=== PATIENT | female | born 1985 | race African-American/Black ===

== ENCOUNTER 2019-05-25 19:12 | Observation (INO) | payer OTHER, MEDICAID ==
[~2019-05-25] VITALS: Ht 157.5 cm; Wt 81.8 kg
[2019-05-25 19:54] LABS: BASOPHILS 0.1 % (0-2); EOSINOPHILS 0.5 % (0-7); HEMATOCRIT 34.6 % (36.0-48.0); HEMOGLOBIN 11.3 g/dL (12-16); IMMATURE GRANULOCYTES 0.3 % (0-5); LYMPHOCYTES 10.8 % (15-50); MCH 30.3 pg (26.0-34.0); MCHC 32.7 g/dL (31.0-37.0); MCV 92.8 fL (80.0-100.0); MEAN PLATELET VOLUME 9.2 fL (7.4-10.4); MONOCYTES 3.9 % (2-11); NEUTROPHILS 84.4 % (40-80); PLATELET COUNT 331 10x3/uL (130-400); RBC 3.73 10x6/uL (4.00-5.40); RDW 13.8 % (11.5-14.5)
[2019-05-25 20:01] LABS: CALC OSMOLALITY 276 mosm/kg (275-300); CALCIUM 8.9 mg/dL (8.5-10.1); CARBON DIOXIDE 21.8 mmol/L (21.0-32.0); CHLORIDE - SERUM 104 mmol/L (98-107); CREATININE - SERUM 0.6 mg/dL (0.6-1.3); GLUCOSE 113 mg/dL (74-106); POTASSIUM - SERUM 3.5 mmol/L (3.5-5.1); SODIUM 138 mmol/L (136-145); UREA NITROGEN 13 mg/dL (7-18); eGFR NON AFRICAN AMERICAN > 90 mL/min (90-120)
[2019-05-25 20:08] LABS: HCG SERUM POSITIVE (NEGATIVE)
[2019-05-25 20:16] LABS: ALBUMIN 3.4 g/dL (3.4-5.0); ALKALINE PHOSPHATASE 85 U/L (46-116); ALT (SGPT) 16 U/L (10-68); BILIRUBIN - TOTAL 0.31 mg/dL (0.2-1.3); LIPASE 90 U/L (73-393); PROTEIN - SERUM 7.4 g/dL (6.4-8.2)
--- NOTE | 2019-05-25 23:25 | NUR ---
URINE SENT TO THE LAB.
[2019-05-25 23:45] VITALS: BP 105/56
[2019-05-25 23:48] LABS: APPEARANCE CLEAR (CLEAR); BILIRUBIN NEGATIVE (NEGATIVE); COLOR YELLOW (YELLOW); GLUCOSE NEGATIVE (NEGATIVE); KETONE MODERATE mg/dL (NEGATIVE); NITRITE NEGATIVE (NEGATIVE); PROTEIN 1+ mg/dL (NEGATIVE); SPECIFIC GRAVITY 1.005 (1.005-1.020); UROBILINOGEN NORMAL (NORMAL)
[2019-05-25 23:50] LABS: BACTERIA FEW /hpf (NEGATIVE); EPITHELIAL CELLS 0-5 /hpf (0-5); RED CELLS - URINE 0-5 /hpf (0-5); WHITE CELLS - URINE 0-5 /hpf (NEGATIVE)
[2019-05-25 23:51] LABS: HCG URINE POSITIVE (NEGATIVE)
[2019-05-26 00:20] VITALS: BP 108/70
--- NOTE | 2019-05-26 01:10 | NUR ---
REPORT GIVEN TO RAYSA TABOR.
--- NOTE | 2019-05-26 01:50 | NUR ---
PHONE REPORT RECEIVED FROM ER NURSE.
--- NOTE | 2019-05-26 02:00 | NUR ---
PT RECEIVED FROM ER VIA WC AND ASSISTED TO BED. ASSESSMENT COMPLETE PER FLOWSHEET. VSS. BBS CLEAR. ABDOMEN SOFT. PT REPORTS HER LAST BM WAS 05/23/19. PT REPORTS THAT SHE IS HAVING ABDOMINAL PAIN IN HER LLQ. PT REPORTS THAT SHE CAME TO THE ER BECAUSE SHE WAS HAVING ABDOMINAL PAIN, VAGINAL BLEEDING AND VOMITTING. PT DENIES ANY C/O N/V OR VAGINAL BLEEDING AT THIS TIME. SL TO HER LEFT AC. NO REDNESS OR TENDERNESS TO SITE. INFORMED PT THAT I WILL CALL DR. CHENG FOR ORDERS. ADMISSION ASSESSMENT COMPLETE. QUESTIONS ANSWERED. PT INSTRUCTED TO NOTIFY NURSE WITH ANY PROBLEMS, NEEDS, OR CONCERNS. VERBALIZED UNDERSTANDING. BED IN LOW POSITION. SR UP X2. CALL LIGHT WITHIN PTS REACH.
[2019-05-26] MEDS ORDERED: PRENAVITE1 TAB (02:12)
[2019-05-26 02:16] VITALS: BP 108/70; Ht 157.5 cm; Wt 81.8 kg
--- NOTE | 2019-05-26 03:02 | NUR ---
CALL PLACED TO DR. CHENG TO INFORM HER THAT PT IS ON UNIT. NEW ORDERS RECEIVED TO START LR AT 125ML/HR, CBC & CMP NOW, MORPHINE 2MG FOR MODERATE PAIN AND MORPHINE 4MG FOR SEVERE PAIN AND FOR PT TO REMAIN NPO.
--- NOTE | 2019-05-26 03:29 | NUR ---
INFORMED PT OF NEW ORDERS RECEIVED FROM DR. CHENG. LR STARTED AT 125ML/HR. SL FLUSHED PRIOR TO STARTING IV FLUIDS. IV SITE PATENT AND WITHOUT REDNESS OR TENDERNESS. INSTRUCTED PT TO NOTIFY NURSE WITH ANY PROBLEMS, NEEDS, OR CONCERNS. VERBALIZED UNDERSTANDING. BED IN LOW POSITION. SR UP X2. CALL LIGHT WITHIN PTS REACH.
--- NOTE | 2019-05-26 04:14 | NUR ---
MORPHINE 4MG GIVEN FOR C/O ABDOMINAL PAIN IN HER LLQ. PT DENIES ANY OTHER COMPLAINTS OR NEEDS. INSTRUCTED PT TO NOTIFY NURSE WITH ANY PROBLEMS, NEEDS, OR CONCERNS. VERBALIZED UNDERSTANDING.
--- NOTE | 2019-05-26 04:45 | NUR ---
PT RESTING INBED. PT REPORTS THAT SHE HAS NO PAIN AT THIS TIME. NO REQUEST MADE. INSTRUCTED PT TO NOTIFY NURSE WITH ANY PROBLEMS, NEEDS, OR CONCERNS. VERBALIZED UNDERSTANDING. BED IN LOW POSITION. SR UP X2. CALL LIGHT WITHIN PTS REACH.
[2019-05-26 05:09] LABS: CALC OSMOLALITY 276 mosm/kg (275-300); CARBON DIOXIDE 24.7 mmol/L (21.0-32.0); CHLORIDE - SERUM 106 mmol/L (98-107); CREATININE - SERUM 0.5 mg/dL (0.6-1.3); GLUCOSE 92 mg/dL (74-106); POTASSIUM - SERUM 3.7 mmol/L (3.5-5.1); SODIUM 140 mmol/L (136-145); eGFR NON AFRICAN AMERICAN > 90 mL/min (90-120)
[2019-05-26 05:10] LABS: UREA NITROGEN 7 mg/dL (7-18)
[2019-05-26 05:14] LABS: ALBUMIN 3.2 g/dL (3.4-5.0); ALKALINE PHOSPHATASE 82 U/L (46-116); ALT (SGPT) 16 U/L (10-68); BASOPHILS 0.2 % (0-2); BILIRUBIN - TOTAL 0.39 mg/dL (0.2-1.3); EOSINOPHILS 0.7 % (0-7); HEMATOCRIT 32.1 % (36.0-48.0); HEMOGLOBIN 10.6 g/dL (12-16); IMMATURE GRANULOCYTES 0.2 % (0-5); MCH 30.3 pg (26.0-34.0); MCV 91.7 fL (80.0-100.0); MEAN PLATELET VOLUME 9.3 fL (7.4-10.4); MONOCYTES 6.9 % (2-11); PLATELET COUNT 320 10x3/uL (130-400); PROTEIN - SERUM 6.6 g/dL (6.4-8.2); RDW 13.9 % (11.5-14.5); WBC 12.1 10x3/uL (4.8-10.8)
--- NOTE | 2019-05-26 06:00 | NUR ---
PT RESTING IN BED WITH EYES CLOSED. NO DISTRESS NOTED. BED IN LOW POSITION. SR UP X2. CALL LIGHT WITHIN PTS REACH.
--- NOTE | 2019-05-26 06:39 | NUR ---
PT ASSISTED UP TO BATHROOM. DENIES ANY COMPLAINTS.
[2019-05-26 07:50] VITALS: BP 130/85
--- NOTE | 2019-05-26 07:50 | NUR ---
IN TO SEE PATIENT. RESTING IN BED. STATES PAIN LEVEL IS DOWN FROM 10 TO 2. IV INFUSING AT 125CC/HR. IV SITE WITHOUT REDNESS, PAIN OR SWELLING. ASSESSMENT COMPLETE. SEE FLOWSHEET. NO COMPLAINTS AT THIS TIME.
--- NOTE | 2019-05-26 08:30 | NUR ---
DR. CHENG HERE TO SEE PT. HISTORY TAKEN AND PELVIC EXAM PERFORMED. DISCUSSED PLAN FOR DISCHARGE AND FOLLOW-UP CARE WITH PATIENT. PATIENT IN AGREEMENT AND STATES UNDERSTANDING.
--- NOTE | 2019-05-26 09:19 | NUR ---
DR CHENG CALLS UNIT- STATES THAT PT HAS AN APPOINTMENT ON WEDNESDAY AT 1330, PT MAY DISCHARGE HOME AND RETURN TO ER TOMORROW FOR BETA.
--- NOTE | 2019-05-26 10:40 | NUR ---
IV C/D'D. CATHETER INTACT. PRESSURE APPLIED. BANDAGE APPLIED OVER INSERTION SITE. PT. UP TO SHOWER.
--- NOTE | 2019-05-26 11:00 | NUR ---
DISCHARGE INSTSRUCTIONS REVIEWED WITH PATIENT. TO RETURN TO ER IF HAVING PAIN UNRELIEVED BY TYLENOL OR IF VAGINAL BLEEDING INCREASES. TO CALL WOMEN[facility]S SERVICES OR DR. CHENG'S OFFICE FOR ANY QUESTIONS OR CONCERNS. TO RETURN TO ER TOMORROW FOR LABS AND TO SEE DR. CHENG IN OFFICE Wednesday05/29/2019 @ 9789. PT DROVE SELF TO ER LAST NIGHT AND IS UNABLE TO OBTAIN A RIDE HOME. HAD MS AT 0415 THIS AM. NOT DROWSY AT THIS TIME. PATIENT STATES SHE FEELS OK TO DRIVE AND LIVES LESS THAN 5 MINUTES FROM THE HOSPITAL. THIS NURSE ACCOMPANIED PATIENT AMBULATORY OFF OF UNIT TO L&D WAITING AREA. PT. STATES "I KNOW WHERE TO GO FROM HERE, THANKS."
== END 2019-05-26 11:45 | disposition home or self-care (01) ==
LOC: D.ER 19:12 → OBSVTIME 05-26 00:46 → D.WS 05-26 00:46
PROVIDERS: Family Medicine; ADMIT Student in an Organized Health Care Education/Training Program; ATTEND Student in an Organized Health Care Education/Training Program
DX: O26.891 Other specified pregnancy related conditions, first trimester (principal); O20.9 Hemorrhage in early pregnancy, unspecified

== ENCOUNTER 2019-05-28 12:22 | Observation (INO) | payer OTHER, MEDICAID ==
[~2019-05-28] VITALS: Ht 157.5 cm; Wt 81.8 kg
--- NOTE | ~2019-05-28 | OP ---
PATIENT NAME: RACHEAL BRYAN MEDICAL RECORD: [id number] :87 LOCATION:[facility] D.1223 ADMISSION DATE:05/28/19 SURGEON: PHILLIP AGUILERA MD DATE OF OPERATION: 05/29/2019 PREOPERATIVE DIAGNOSES: 1. Suspected ectopic . 2. Abdominal pain. POSTOPERATIVE DIAGNOSES: 1. Hemoperitoneum. 2. Ruptured ectopic , which damaged the ovary, left fallopian tube, and left infundibulopelvic ligament. PROCEDURES: Diagnostic laparoscopy and exploratory laparotomy, left salpingo-oophorectomy. SURGEON: Phillip Aguilera MD ANESTHESIA: General endotracheal. INTRAVENOUS FLUIDS: Per anesthesia record. ESTIMATED BLOOD LOSS: Approximately 1000 cc of clot and blood were noted in the abdomen upon entry and approximately another 500 cc of blood was noted intraoperatively. SPECIMENS: Included left fallopian tube and left ovary. OPERATIVE DIAGNOSIS: Ruptured ectopic . FINDINGS: 1. Hemoperitoneum. 2. Multiple areas of clotted blood and severely damaged and displaced left fallopian tube. 3. Damaged, bleeding left ovary. 4. Eroded and bleeding left infundibulopelvic ligament. PROCEDURE IN DETAIL: The patient was taken to the operating room where general anesthesia was achieved without any difficulty. The patient was prepped and draped in normal sterile fashion in the dorsal lithotomy position in the [facility]. SCDs were on and functioning normally. A Danielson catheter was placed. At this point, a 5-mm incision was made infraumbilically and the intraperitoneal space was entered using the 5-mm bladeless trocar without any difficulty under direct visualization of the laparoscope. Following entry into the peritoneal space, the introducer was removed and intraperitoneal placement was confirmed using the laparoscope. Copious blood and clot were noted in the abdomen and pelvis. A 5-mm incision was then made in the left lower quadrant and a second 5-mm port was placed. Attempts were made to examine the left adnexa and to remove clot, but brisk active bleeding was noted upon removal of the clotted material. At this point, a decision was made to proceed with laparotomy. The patient was desufflated and the 2 trocars were removed. A repeat Pfannenstiel skin incision was made, extended downward to the underlying subcutaneous fat to the level of the fascia. The fascia was then excised in the midline and extended bilaterally using the Gottlieb scissors. Superior and inferior OPERATIVE REPORT [id number] IRVIN,DEASEREE aspects of the fascial incision were then grasped with Tara clamps times 2, tented upward, and sharply dissected from the underlying rectus muscle using the Gottlieb scissors and the Bovie cautery. Rectus muscles were then bluntly in the midline, and the peritoneum entered sharply at the superior aspect of the incision. Peritoneal incision was extended downward using the Metzenbaum scissors. At this point, vigorous irrigation was performed to remove copious areas of clot and blood. The uterus was identified and delivered gently to the level of the incision. The left fallopian tube appeared to be detached from most of the mesosalpinx and apparently ruptured and an area of the left ovary was found to be abraded and bleeding and also an area of the left infundibulopelvic ligament was found to be eroded and bleeding. A clamp was placed across the uteroovarian ligament and the proximal fallopian tube. The ovarian vessels were then gently skeletonized and a curved Stefan clamp was placed across the infundibulopelvic ligament below the area where it was bleeding. The left fallopian tube and ovary were then removed, and the tubal stump and utero-ovarian ligament were then oversewn with 2-0 Vicryl with good hemostasis noted. Attention was then turned to the infundibulopelvic ligament where a second curved Stefan clamp was placed to secure the bleeding. A 0 Vicryl free tie was then placed behind the most proximal clamp and the most proximal clamp was gently removed. A 0 Vicryl stitch was then used to suture ligate the infundibulopelvic ligament distal to the free tie. This was removed and good hemostasis was noted. Several 0 Vicryl sutures were then placed in the peritoneal defects between the infundibulopelvic ligament and the utero-ovarian ligament. The pelvis and abdomen were thoroughly irrigated with good hemostasis noted. No evidence of tubal or reattachment was noted anywhere within the pelvis. No obvious products of conception were noted within the large amount of blood and clot. Following thorough irrigation, the counts were correct times 2 for needles, sponges, and instruments. The fascia was repaired with 0 loop PDS times 1, and the skin was repaired with zack. The patient tolerated the procedure well, transferred to postanesthesia recovery stable and without incident. TRANSINT:[id number] Voice Confirmation ID: [id number] DOCUMENT ID: [id number] PHILLIP AGUILERA MD CC: [id number] DICTATION DATE: 06/08/19733 ASSOCIATE ARTISTIC DIRECTOR: 06/08/19 08 DIS IN 05/30/19 [facility] [address] [id number]
[~2019-05-28 12:22] MED LIST: PRENAVITE1 TAB
[2019-05-28 13:24] LABS: BASOPHILS 0.3 % (0-2); HEMATOCRIT 35.1 % (36.0-48.0); HEMOGLOBIN 11.5 g/dL (12-16); IMMATURE GRANULOCYTES 0.3 % (0-5); MCH 30.2 pg (26.0-34.0); MCHC 32.8 g/dL (31.0-37.0); MCV 92.1 fL (80.0-100.0); MEAN PLATELET VOLUME 9.3 fL (7.4-10.4); MONOCYTES 5.3 % (2-11); NEUTROPHILS 73.1 % (40-80); PLATELET COUNT 354 10x3/uL (130-400); RBC 3.81 10x6/uL (4.00-5.40); RDW 13.7 % (11.5-14.5); WBC 11.6 10x3/uL (4.8-10.8)
[2019-05-28 13:27] LABS: CALC OSMOLALITY 271 mosm/kg (275-300); CALCIUM 8.4 mg/dL (8.5-10.1); CARBON DIOXIDE 20.7 mmol/L (21.0-32.0); CHLORIDE - SERUM 106 mmol/L (98-107); CREATININE - SERUM 0.6 mg/dL (0.6-1.3); GLUCOSE 93 mg/dL (74-106); POTASSIUM - SERUM 3.4 mmol/L (3.5-5.1); SODIUM 137 mmol/L (136-145); UREA NITROGEN 8 mg/dL (7-18); eGFR NON AFRICAN AMERICAN > 90 mL/min (90-120)
[2019-05-28 13:38] LABS: ALBUMIN 3.4 g/dL (3.4-5.0); ALKALINE PHOSPHATASE 87 U/L (46-116); ALT (SGPT) 15 U/L (10-68); BILIRUBIN - TOTAL 0.36 mg/dL (0.2-1.3); HCG - QUANTITATIVE (MATERNAL) 33 mIU/mL; PROTEIN - SERUM 7.3 g/dL (6.4-8.2)
--- NOTE | 2019-05-28 13:57 | NUR ---
LAB CALLED L&D AND SAID PT WAS IN LAB TO GET HCG DONE. SAID PT WAS SEEN IN ER TODAY AND DC'D. PT STILL C/O PAIN AND MEDICAL PROFESSIONALS ASKED IF PT SHOULD COME TO L&D. INSTRUCTED PT SHOULD RETURN TO ER FOR REEVALUATION. DR PACK WAS NOTIFIED BY THIS RN REGARDING PLANS WRITTEN BY DR CHENG WHEN PT WAS DC'D HOME WEDNESDAY. CURRENT RESULTS OF HGC QUAT [address] PACK. ALSO REQUESTS RESULTS OF H&H ON WEDNESDAY AND CURRENT H&H RESULTS. DR PACK ALSO INFORMED THAT PATIENT IS CURRENTLY BACK IN ER.
--- NOTE | 2019-05-28 15:50 | NUR ---
URINE SENT TO LAB
[2019-05-28 15:57] LABS: APPEARANCE CLEAR (CLEAR); COLOR YELLOW (YELLOW)
[2019-05-28 15:58] LABS: BILIRUBIN NEGATIVE (NEGATIVE); GLUCOSE NEGATIVE (NEGATIVE); KETONE MODERATE mg/dL (NEGATIVE); NITRITE NEGATIVE (NEGATIVE); PROTEIN NEGATIVE (NEGATIVE); SPECIFIC GRAVITY 1.005 (1.005-1.020); UROBILINOGEN NORMAL (NORMAL)
[2019-05-28 16:00] LABS: BACTERIA FEW /hpf (NEGATIVE); EPITHELIAL CELLS 0-5 /hpf (0-5); RED CELLS - URINE 0-5 /hpf (0-5); WHITE CELLS - URINE 0-5 /hpf (NEGATIVE)
--- NOTE | 2019-05-28 18:35 | NUR ---
WAS TRANSFERRED FROM ER FOR ADMISSION ON L&D. IN ROOM 1275, LAYING ON LEFT SIDE MOANING. SAYS HER PAIN IS 8/10 PRESSURE. STARTED THIS AM AFTER TRYING TO HAVE A BM. SAYS SHE HAS PAIN WHEN PASSING GAS. HAD ONE HARD BALL BM. LAST BM WAS LAST WEDNESDAY. SAYS NO ONE HAS ASKED HER ABOUT BM. BOWEL SOUNDS AUDIBLE X 4 QUADRANTS. SALINE LOCK PRESENT IN LEFT AC. ASKED FOR WATER WHICH WAS GIVEN. CLEAR LIQUID DIET AT BEDSIDE. SIDE RAILS UP X 2, CALL LIGHT IN REACH.
[2019-05-28] MEDS ORDERED: TYLENOL PM1 TAB PO (18:37)
--- NOTE | 2019-05-28 18:45 | NUR ---
NORCO 10 MG GIVEN PO FOR RELIEF OF LEFT LOWER ABDOMINAL PRESSURE 01/21. IV NS 1000 ML PLACED ON ALARIS PUMP AT 125 ML/HR. SIDE RAILS UP X 2, CALL LIGHT IN REACH. DISCUSSED POC TO INCLUDE CLEAR LIQUIDS, IV FLUIDS AND PAIN MANAGMENT. WILL NEED SCDS ON.
--- NOTE | 2019-05-28 19:50 | NUR ---
PAIN REASSESSMENT COMPLETED FROM 1844 DOSE OF NORCO. REPORTS THAT PAIN IS NOW 9/10. STATES "THE PAIN PILL HAS NOT REALLY HELPED AT ALL. I ACTUALLY FEEL LIKE IT MAYBE GETTING WORSE." DESCRIBES PAIN CONSTANT PRESSURE THAT RADIATES TO VAGINAL AREA INTERMITTENTLY. REPORTS THAT SHE HAS HAD "SAME PAIN SINCE WEDNESDAY BUT IT GOT BETTER WEDNESDAY AND WEDNESDAY BUT GOT WORSE TODAY." RLQ AND LLQ ABD TENDER TO PALP. ABD PALPS SOFT, NONDISTENDED WITH ACTIVE BOWEL SOUNDS X4. REPORTS THAT UNTIL TODAY SHE HAD NOT HAD BM AND THAT STOOL TODAY WAS "SMALL HARD ROUND BALL AND I HAD TO PUSH REALLY HARD TO GET IT OUT." REPORTS THAT NORMALLY SHE HAS A BM Q DAY. REPORTS THAT SHE BEGAN HAVING VAGINAL BLEEDING WEDNESDAY THAT WAS "PINKISH TO BROWN" IN COLOR THAT HAS CONTINUED. DENIES PASSING CLOTS EXCEPT FOR FOLLOWING TRANSVAGINAL U/S, "IT WAS ONLY ONE AND MAYBE DIME SIZED." DENIES DIFFICULTY VOIDING OR DYSURIA AND BACK PAIN. NO FLANK PAIN REPORTED OR NOTED WITH ASSESSMENT. POC DISCUSSED WITH PT, VERBALIZES UNDERSTANDING AND DENIES QUESTIONS. BED LOW POSITION WITH SRUP X2. CALL LIGHT AND PHONE WITHIN REACH. WILL CONTINUE TO MONITOR.
[2019-05-28 20:04] VITALS: BP 135/77; BMI 33.0
[2019-05-28 20:24] VITALS: BP 142/84
--- NOTE | 2019-05-28 20:24 | NUR ---
UP TO BR. CURRENT PERIPAD WITH SMALL AMT BROWN AND PINK-TINGED DISCHARGE NOTED. NO CLOTS TO PERIPAD. PT VOIDED LARGE AMT URINE, WITH LARGE BASEBALL SIZED CLOT NOTED IN TOILET. UPON WIPING BRB NOTED. PT REPORTS THAT THIS IS THE FIRST TIME SHE HAS HAD ANY BLEEDING THAT HAS BEEN BRIGHT RED AND PASSED CLOT OF THIS SIZE. DENIES DIZZINESS AND LIGHTHEADEDNESS. V/S REMAIN STABLE. REPORTS THAT PAIN IS STILL UNCHANGED. DENIES NAUSEA. WILL REPORT TO DR. PACK.
--- NOTE | 2019-05-28 21:23 | NUR ---
V/S REMAIN STABLE. ABD REMAINS SOFT AND NON DISTENDED WITH NO REPORTED CHANGE IN TENDERNESS FROM PT. REPORTS THAT PAIN REMAINS 8-9/10, CONSTANT ABD PRESSURE WITH INTERMITTENT RADIATION TO VAGINAL AREA. WILL REPORT TO DR. PACK.
--- NOTE | 2019-05-28 21:26 | NUR ---
DR. PACK PAGED TO GIVE REPORT ON ASSESSMENT FINDINGS AND PT C/O UNCHANGED ABD PAIN.
--- NOTE | 2019-05-28 21:29 | NUR ---
CALL BACK TO UNIT REC'D FROM DR. PACK. ASSESSMENT FINDINGS REPORT INCLUDING PT REPORTS OF CONSTIPATION WITH LAST BM BEING LAST WEDNESDAY AND UNRELIEVED PAIN. ORDERS REC'D TO DRAW STAT CBC AND REPORT TO MD HGB LESS THAN 10, MAY GIVE NEXT DOSE NORCO 30 MINUTES EARLY AND COLACE PO 100 MG BID.
--- NOTE | 2019-05-28 21:43 | NUR ---
COLACE GIVEN PER ORDER. PT UPDATED ON POC CHANGES AND VERBALIZES UNDERSTANDING AND AGREEMENT. TEARFUL AND MOANING AT THIS TIME. C/O INCREASED PAIN TO RLQ OF ABD, 02/21. EXPLAINED PURPOSE OF CBC, VERBALIZES UNDERSTANDING. STATES PAIN IS "SHARP PRESSURE." WARM BLANKET PROVIDED. NO BLOOD NOTED ON PERIPAD, ABD REMAINS SOFT AND NONDISTENDED, REPORTS NO CHANGE IN TENDERNESS FROM INITIALL ASSESSMENT BY THIS RN. BED IN LOW POSITION WITH SRUP X2. CALL LIGHT AND PHONE WITHIN REACH.
[2019-05-28 21:59] VITALS: BP 147/58
[2019-05-28 22:02] LABS: BASOPHILS 0.1 % (0-2); EOSINOPHILS 0.1 % (0-7); HEMATOCRIT 33.4 % (36.0-48.0); HEMOGLOBIN 11.1 g/dL (12-16); IMMATURE GRANULOCYTES 0.4 % (0-5); LYMPHOCYTES 10.2 % (15-50); MCH 30.7 pg (26.0-34.0); MCHC 33.2 g/dL (31.0-37.0); MCV 92.3 fL (80.0-100.0); MONOCYTES 4.7 % (2-11); NEUTROPHILS 84.5 % (40-80); PLATELET COUNT 347 10x3/uL (130-400); RBC 3.62 10x6/uL (4.00-5.40); RDW 13.5 % (11.5-14.5); WBC 13.6 10x3/uL (4.8-10.8)
--- NOTE | 2019-05-28 22:15 | NUR ---
HGB 11.3 FROM STAT DRAW. REMAINS TEARFUL WITH GRIMACE NOTED AND MOANING. PAIN 9/10, SHARP PRESSURE TO BILATERAL LOWER ABD QUADRANTS, "IT'S JUST WORSE ON MY RIGHT SIDE." NORCO 10 GIVEN PER ORDER. ICE WATER PROVIDED. WILL CONTINUE TO MONITOR.
--- NOTE | 2019-05-28 22:35 | NUR ---
PT CALLS VIA CALL LIGHT. REPORTS THAT SHE VOMITTED. APPROXIMATELY 200 MLS CLEAR TO LIGHT YELLOW TINGED EMESIS NOTED ON FLOOR. NORCO THAT HAD BEEN GIVEN AT 2215 NOTED IN EMESIS. DENIES FEELING NAUSEATED PRIOR TO EPISODE AND CURRENTLY. REPORTS THAT SHE HAS HAD INTERMITTENT NAUSEA BUT NO VOMITING AND NO CHANGE IN APPEPITITE. NORCO 10 PULLED AND READMINISTERED. WILL CONTINUE TO MONITOR. BED IN LOW POSITION WITH SRUP X2. FLOOR WET AT THIS TIME AND PT INSTRUCTED TO CALL FOR ASSISTANCE OOB, VERBALIZES UNDERSTANDING.
--- NOTE | 2019-05-28 23:13 | NUR ---
PAIN REASSESSMENT COMPLETED, GRIMACE NOTED. REMAIN TEARFUL. REPORTS THAT PAIN REMAINS 02/21. DR. PACK PAGED TO NOTIFY OF INTERVENTIONS FOR PAIN AND REPORTS OF UNCHANGED PAIN.
--- NOTE | 2019-05-28 23:24 | NUR ---
CALLBACK TO UNIT REC'D FROM DR. PACK. REPORT GIVEN. ORDERS REC'D.
--- NOTE | 2019-05-28 23:31 | NUR ---
JENIFFER IN ULTRASOUND NOTIFIED OF NEED FOR STAT U/S, WILL CALL TECH IN.
--- NOTE | 2019-05-28 23:40 | NUR ---
UPDATED ON CHANGES IN POC, VERBALIZES UNDERSTANDING. PAY PER CLICK STRATEGIST INITIATED AND VERIFIED WITH Zia MERRITT RN. INSTRUCTED ON PAY PER CLICK STRATEGIST USE, VERBALIZES UNDERSTANDING AND DENIES QUESTIONS. ZOFRAN GIVEN PER ORDER AND PT REQUEST. PT REPORTS THAT SHE GET NAUSEATED WITH PAIN MEDS NORMALLY. TRAY AND ICE WATER REMOVED FROM ROOM.
[2019-05-29] VITALS (9 sets, daily range): BP systolic 106–133; BP diastolic 56–84; Ht 157.5 cm; Wt 81.8 kg
--- NOTE | 2019-05-29 00:09 | NUR ---
SECURITY POLICE OFFICER TO ROOM AT THIS TIME TO PEFORM ORDERED U/S PER DR PACK.
--- NOTE | 2019-05-29 00:15 | NUR ---
U/S TECH REMAINS AT BEDSIDE. PAIN 12/21, REPORTS THAT RADIO ANNOUNCER IS STARTING TO HELP RELIEVE PAIN.
--- NOTE | 2019-05-29 01:31 | NUR ---
ROUNDS MADE. OPENS EYES WHEN DOOR OPENS, REPORTS THAT PAIN IS 6-7/10. REPORTS THAT PAIN HAS DECREASED SINCE U/S WAS COMPLETED. DENIES NEEDS AT THIS TIME. SCD'S ON BLE.
--- NOTE | 2019-05-29 02:00 | NUR ---
HARPREET U/S TECH ON UNIT WITH PRELIM U/S REPORT. WILL CALL FINDINGS TO DR. PACK.
--- NOTE | 2019-05-29 02:02 | NUR ---
DR. PACK PAGED WITH IMMEDIATE CALL BACK TO UNIT. U/S PRELIM REPORT REVIEWED. ORDERS REC'D CALL OR CREW IN.
--- NOTE | 2019-05-29 02:04 | NUR ---
JANE GOMEZRN INTENSIVE CARE UNIT NOTIFIED OF NEED FOR OR CREW AND PURPOSE. WILL CALL CREW IN.
[2019-05-29 02:16] LABS: UDS - AMPHET NEGATIVE QUAL (NEGATIVE); UDS - BARB NEGATIVE QUAL (NEGATIVE); UDS - BENZO NEGATIVE QUAL (NEGATIVE); UDS - COCAINE NEGATIVE QUAL (NEGATIVE); UDS - OPIATE POSITIVE QUAL (NEGATIVE); UDS - PCP NEGATIVE QUAL (NEGATIVE); UDS - THC POSITIVE QUAL (NEGATIVE)
--- NOTE | 2019-05-29 02:18 | NUR ---
MEDICAL, ANESTHESIA, AND BLOOD CONSENTS SIGNED AND WITNESSED.
--- NOTE | 2019-05-29 02:27 | NUR ---
DR. PACK AT BEDSIDE DISCUSSING PLAN OF CARE WITH PT.
--- NOTE | 2019-05-29 02:33 | NUR ---
Curry MAST CRNA AT BEDSIDE TO DISCUSS ANESTHESIA WITH PT AND ANSWER QUESTIONS.
--- NOTE | 2019-05-29 02:35 | NUR ---
16 FR FRAGA PLACED USING STERILE TECHNIQUE WITH IMMEDIATE RETURN OF CLEAR LIGHT YELLOW URINE. PERICLIP DONE. SCD'S ON BLE.
--- NOTE | 2019-05-29 02:50 | NUR ---
Curry MAST CRNA NOTIFIED THAT PT CONTINUES TO BF CHILD AT HOME. PER Curry MAST RN. PT WILL NEED TO BE INSTRUCTED TO PUMP AND DUMP D/T MEDS THAT WILL BE REQUIRED DURING PROCEDURE.
--- NOTE | 2019-05-29 02:53 | NUR ---
OFF UNIT WITH OR CREW.
[2019-05-29 04:41] LABS: BASOPHILS 0.2 % (0-2); EOSINOPHILS 0.6 % (0-7); HEMATOCRIT 30.9 % (36.0-48.0); HEMOGLOBIN 10.2 g/dL (12-16); IMMATURE GRANULOCYTES 0.3 % (0-5); LYMPHOCYTES 14.4 % (15-50); MCH 30.5 pg (26.0-34.0); MCV 92.5 fL (80.0-100.0); MONOCYTES 6.9 % (2-11); NEUTROPHILS 77.6 % (40-80); PLATELET COUNT 134 10x3/uL (130-400); RBC 3.34 10x6/uL (4.00-5.40); RDW 13.8 % (11.5-14.5); WBC 11.8 10x3/uL (4.8-10.8)
--- NOTE | 2019-05-29 05:40 | NUR ---
REC'D BACK TO ROOM FROM PACU. VSS. AA&O X3, REPORTS THAT SHE FEELS "A LITTLE SLEEPY." DENIES PAIN AT THIS TIME, STATES "I FEEL SO MUCH BETTER." 700 MLS YELLOW URINE EMPTIED FROM FRAGA. BANDAID NOTED TO UMBILICUS, CLEAN DRY AND INTACT, NO DRAINAGE NOTED. BULKY DRSG TO LOWER TRANSVERSE ABD INCISION NOTED, NO DRAINAGE NOTED. NO VAG BLEEDING NOTED, CHUX REMAIN CLEAN WITH NO BLEEDING NOTED. SCD'S ON, SOCKS PROVIDED. ICE PACK PLACED TO INCISION PER ORDER. SUPERVISOR SPECIAL EFFECTS RESTARTED PER ORDER AND VERIFIED WITH Zia MERRITT RN. INCENTIVE SPIROMETER GIVEN WITH INSTRUCTIONS ON USE, PERFORMED X7 WITH GOOD EFFORT. COUGH AND DEEP BREATHING DONE WITH GOOD EFFORT. CALL LIGHT AND PHONE PLACED WITHIN PT REACH. PT REQUEST RN NOTIFY HER MOTHER THAT SHE HAD RETURNED TO ROOM FROM SURGERY AND WAS DOING WELL. SUPERVISOR SPECIAL EFFECTS BUTTON ALSO PLACED WITHIN REACH. BED IN LOW POSITION WITH SRUP X2.
--- NOTE | 2019-05-29 06:09 | NUR ---
PT MOTHER NOTIFIED THAT PT WAS BACK TO ROOM FROM RECOVERY AND STABLE PER PT REQUEST.
--- NOTE | 2019-05-29 06:18 | NUR ---
EASILY AROUSABLE TO VOICE. VSS. NO VAG BLEEDING NOTED TO CHUX OR PERIPAD. CONTINUES TO DENY PAIN. BED IN LOW POSITION WITH SRUP X2. CALL LIGHT AND PHONE WITHIN REACH. WILL CONTINUE TO MONITOR.
--- NOTE | 2019-05-29 06:40 | NUR ---
NEW BAG NS HUNG TO CONTINUE TO INFUSE AT 125 MLS/HR PER ORDER. EASILY AROUSABLE, DENIES PAIN. CRANBERRY JUICE PROVIDED PER REQUEST. V/S REMAIN STABLE. NO BLEEDING NOTED TO PERIPAD OR CHUX. LOWER TRANSVERSE ABD DRSG REMAINS CLEAN DRY AND INTACT. BED IN LOW POSITION WITH SRUP X2. CALL LIGHT, MERCANTILE REPORTER BUTTON, AND PHONE WITHIN REACH. WILL CONTINUE TO MONITOR.
--- NOTE | 2019-05-29 07:15 | NUR ---
AM ASSESSMENT COMPLETED, PT IS DROWSY BUT EASILY AWAKEN AND ANSWERS QUESTIONS, RATES PAIN AT 5/10, SHE IS ENCOURAGED TO USE HER STREAMING MEDIA SPECIALIST BUTTON AT THIS TIME. SIDE RAILS UP X 2 WITH CALL LIGHT IN REACH.
[2019-05-29 08:15] LABS: BASOPHILS 0.1 % (0-2); EOSINOPHILS 0.3 % (0-7); HEMATOCRIT 30.8 % (36.0-48.0); HEMOGLOBIN 10.1 g/dL (12-16); IMMATURE GRANULOCYTES 0.4 % (0-5); LYMPHOCYTES 12.4 % (15-50); MCH 30.4 pg (26.0-34.0); MCHC 32.8 g/dL (31.0-37.0); MCV 92.8 fL (80.0-100.0); MEAN PLATELET VOLUME 9.2 fL (7.4-10.4); MONOCYTES 5.4 % (2-11); NEUTROPHILS 81.4 % (40-80); RBC 3.32 10x6/uL (4.00-5.40); RDW 13.9 % (11.5-14.5); WBC 11.2 10x3/uL (4.8-10.8)
[2019-05-29 08:27] LABS: PLATELET COUNT 303 10x3/uL (130-400)
--- NOTE | 2019-05-29 08:45 | NUR ---
PT RESTING WITH EYES CLOSED AND RESP EVEN, NO DISTRESS NOTED, PT LEFT UNDISTURBED AT THIS TIME. CALL LIGHT WITH IN REACH WITH SIDE RAILS UP X 2.
--- NOTE | 2019-05-29 10:00 | NUR ---
PT C/O NAUSEA. ZOFRAN 4 MG GIVEN SIVP OVER 2 MINUTES. PT PROVIDED POPSICLE AT PT REQUEST.
--- NOTE | 2019-05-29 10:15 | NUR ---
PT TRANSFERRED TO ROOM 1223. SHE IS AWAKE AND ALERT, DENIES NAUSEA AND ASKING WHEN SHE CAN EAT. UNDERSTANDS THAT DR PACK WOULD BE NOTIFIED FOR NEW ORDERS. IV INFUSING PER ORDER WITHOUT COMPLAINT FROM PT, PAINTER ORDNANCE FOR PAIN CONTROL, PT RATES PAIN AT 4/10 AT THIS TIME. FRAGA CATH TO BEDSIDE DRAIN WITH 200ML CLEAR URINE NOTED. SCD BILAT PER ORDERS. LARGE ICE WATER AND POPSICLE PER REQUEST. PT MOTHER AT BEDSIDE, SIDE RAILS UP X 2 WITH CALL LIGHT IN REACH.
--- NOTE | 2019-05-29 11:45 | NUR ---
PT AWAKEN VERBALLY, VSS SCANNED TO EMAR. RATES PAIN AT 5/10 AND USING HER MANAGER DIABETES NEEDED. ABDOMEN SOFT TO TOUCH WITH BIKINI INCISION COVERED WITH LARGE WHITE BANDAGE THAT IS CLEAN AND DRY. FRAGA WITH 350ML CLEAR URINE, FRAGA CARE PER RN AT THIS TIME ALSO. LARGE ICE WATER PER REQUEST.
--- NOTE | 2019-05-29 13:33 | NUR ---
DR PACK CALLS UNIT FOR AM LAB RESULTS, ORDERS RECEIVED TO ADVANCE PLAN OF CARE, OCTOBER SALINE LOCK IV AND D/C RESIDENT CARE SUPERVISOR, PO PAIN MED ORDERED. CONTINUE TO OBSERVE OVERNIGHT.
--- NOTE | 2019-05-29 14:00 | NUR ---
IV SALINE LOCKED AND HEAD PIECE ASSEMBLER DISCONTINUED. PT GIVEN PAIN MED SCANNED TO EMAR. FRAGA CATH INTACT WITH TOTAL OUTPUT OF 1100ML CLEAR URINE. PT ABLE TO GET HERSELF UP WITHOUT ASSISTANCE AND WALK TO BATHROOM. UNABLE TO VOID AT THIS TIME, MESH BRIEF AND ABHI PAD PROVIDED, GOWN CHANGED. PT BACK TO BED, POSITION SELF FOR COMFORT. SIDE RAILS UP X 2 WITH CALL LIGHT INREACH LIGHTS OUT REQUESTED.
--- NOTE | 2019-05-29 15:30 | NUR ---
PT NOTED TO BE RESTING ON HER RIGHT SIDE. EYES CLOSED AND RESP EVEN, NO SIGNS OF DISTRESS, LEFT UNDISTURBED AT THIS TIME.
--- NOTE | 2019-05-29 17:30 | NUR ---
PT UP TO SHOWER, FAMILY MEMBERS AT BEDSIDE. BED LINENS CHANGED. PT FAMILY REMAINS AT BEDSIDE AND UNDERSTANDS TO USE EMERGENCY CALL LIGHT IF NURSE IS NEEDED.
--- NOTE | 2019-05-29 18:30 | NUR ---
PT CALLS OUT FOR WARM BLANKET, THIS IS RN TAKES REQUESTED ITEM TO ROOM. PT STATES THAT PAIN IS BETTER AFTER SHOWER AND RATES IT AT 4/10. LARGE ICE WATER ALSO PROVIDED AT THIS TIME. PT WAS ABLE TO VOID 400ML PRIOR TO SHOWERING. SIDE RAILS UP X 2, CALL LIGHT IS WITH IN HER REACH.
--- NOTE | 2019-05-29 18:50 | NUR ---
REPORT COMPLETED TO 7P-7A
--- NOTE | 2019-05-29 19:04 | NUR ---
SHIFT REPORT RECEIVED FROM LORENZO IVLCHIS RN
--- NOTE | 2019-05-29 21:10 | NUR ---
PT RESTING IN BED. ASSESSMENT COMPLETE PER FLOWSHEET. VS OBTAINED. BBS CLEAR. ABDOMEN SOFT. INCISIONS TO UMBILICUS AND LEFT OF ABDOMEN C/D/I WITH STITCH. LOW TRANSVERSE ABDOMINAL INCISION C/D/I WITH BHUMIKA. SL TO LEFT AC WITHOUT REDNESS OR TENDERNESS. PT REPORTS THAT SHE HAS NOT PASSED FLATUS. POC DISCUSSED. AMBULATION ENCOURAGED. QUESTIONS ANSWERED. PT INSTRUCTED TO NOTIFY NURSE WITH ANY PROBLEMS, NEEDS, OR CONCERNS. VERBALIZED UNDERSTANDING. BED IN LOW POSITION. SR UP X2. CALL LIGHT WITHIN PTS REACH. WATER PITCHER FILLED. JUICE AND SANDWICH TRAY PER PT REQUEST.
--- NOTE | 2019-05-29 22:46 | NUR ---
PT AMBULATING IN HALLWAYS. TOLERATING WELL.
--- NOTE | 2019-05-29 23:55 | NUR ---
PT RESTING IN ED. VS OBTAINED. PT DENIES ANY COMPLAINTS OR NEEDS AT THIS TIME. INSTRUCTED PT TO NOTIFY NURSE WITH ANY PROBLEMS, NEEDS, OR CONCERNS. VERBALIZED UNDERSTANDING. BED IN LOW POSITION. SR UP X2. CALL LIGHT WITHIN PTS REACH.
--- NOTE | 2019-05-30 02:07 | NUR ---
PT RESTING IN BED WITH EYES CLOSED. NO DISTRESS NOTED. BED IN LOW POSITION. SR UP X2. CALL LIGHT WITHIN PTS REACH.
[2019-05-30 04:30] VITALS: BP 99/51
--- NOTE | 2019-05-30 04:30 | NUR ---
PT RESTING IN BED. VS OBTAINED. PT DENIES ANY COMPLAINTS OR NEEDS. INSTRUCTED PT TO NOTIFY NURSE WITH ANY PROBLEMS, NEEDS, OR CONCERNS. VERBALIZED UNDERSTANDING. BED IN LOW POSITION. SR UP X2. CALL LIGHT WITHIN PTS REACH.
--- NOTE | 2019-05-30 05:05 | NUR ---
PT C/O INCISIONAL PAIN. NORCO 5 AND MOTRIN 600MG X1 TABLET GIVEN. JUICE PROVIDED. INSTRUCTED PT TO NOTIFY NURSE IF PAIN MEDICATION NOT EFFECTIVE OR WITH ANY OTHER PROBLEMS, NEEDS, OR CONCERNS. VERBALIZED UNDERSTANDING. BED IN LOW POSITION. SR UP X2. CALL LIGHT WITHIN PTS REACH.
--- NOTE | 2019-05-30 05:49 | NUR ---
PT RESTING IN BED WITH EYES CLOSED. NO DISTRESS NOTED. BED IN LOW POSITION. SR UP X2. CALL LIGHT WITHIN PTS REACH.
--- NOTE | 2019-05-30 06:24 | NUR ---
PT RESTING IN BED WITH EYES CLOSED. NO DISTRESS NOTED. BED IN LOW POSITION. SR UP X2. CALL LIGHT WITHIN PTS REACH.
--- NOTE | 2019-05-30 07:00 | NUR ---
RECEIVED REPORT FROM Curry DRISCOLL RN. PT RESTING IN BED. NO COMPLAINTS OR NEEDS AT THIS TIME.
[2019-05-30 08:15] VITALS: BP 121/78
--- NOTE | 2019-05-30 08:30 | NUR ---
ASSESSMENT COMPLETED. SEE FLOWSHEET. REGULAR DIET TOLERATED WELL.
--- NOTE | 2019-05-30 09:15 | NUR ---
C/O PAIN AND REQUESTING MEDICATION. MEDICATION GIVEN.
[2019-05-30] MEDS ORDERED: HYDROCODON-ACE1 EA10 PO (11:54)
[2019-05-30] MEDS ORDERED: IBUPROFEN600 MG PO (11:55)
--- NOTE | 2019-05-30 12:05 | NUR ---
REVIEWED DISCHARGE INSTRUCTIONS WITH PATIENT. STATES UNDERSTANDING. PRESCRIPTIONS GIVEN.
--- NOTE | 2019-05-30 12:20 | NUR ---
IV D/C'D. CATHETER INTACT. PRESSURE APPLIED. NO BLEEDING NOTED. BANDAGE APPLIED TO INSERTION SITE.
[2019-05-30 12:25] VITALS: BP 109/72
--- NOTE | 2019-05-30 12:25 | NUR ---
C/O HEADACHE, PRESSURE BEHIND FOREHEAD/EYES. VITAL SIGNS TAKEN. BP WITHIN NORMAL LIMITS. MOTRIN GIVEN.
--- NOTE | 2019-05-30 13:05 | NUR ---
DISCHARGED HOME WITH FAMILY VIA WHEELCHAIR TO PRIVATE VEHICLE ACCOMPANIED BY HOSPITAL VOLUNTEER.
--- NOTE | 2019-05-30 13:05 | NUR ---
DISCHARGE INSTRUCTIONS FAXED TO PATIENT'S EMPLOYER PER PATIENT REQUEST.
== END 2019-05-30 13:07 | disposition home or self-care (01) ==
LOC: D.ER 12:22 → OBSVTIME 17:23 → D.LD 17:23 → D.WS 05-29 10:15
PROVIDERS: Family Medicine; ADMIT Obstetrics & Gynecology; ATTEND Obstetrics & Gynecology
DX: O00.102 Left tubal pregnancy without intrauterine pregnancy (principal)